=== PATIENT | male | born 1960 | race Caucasian/White ===

== ENCOUNTER 2020-04-18 08:00 | Inpatient (IN) | payer BC ==
[2020-04-12 13:33] VITALS: BMI 26.4
--- NOTE | 2020-04-18 07:59 | HP ---
[facility] - Chief Complaint Chief Complaint: right hip pain - Past Medical History Allergies/Adverse Reactions: Allergies Allergy/AdvReac Type Severity Reaction Status Date / Time No Known Allergies Allergy Verified 04/12/20 13:28 - Current Medications Current Medications: Home Medications Medication Instructions Recorded NK [No Known Home Medication] 04/12/20 [facility] Physical Exam - Physical Examination General Appearance: Well Nourished, Well Developed, Alert & Oriented x3 ENT: Clear Lung: Normal air movement Extremities: Other (right hip- +ttp, decr rom, nvi, xrays show grade 4 hip djd) Neurological: Intact, Alert, Oriented [facility] Impression/Plan - Impression/Plan Impression: right hip djd Operative Procedure: right wendy thr Date to be Performed: 04/18/20
[2020-04-18] MEDS: CELECOXIB 200 MG CAPSULE PO ONE ×2 (09:00→18:29)
[2020-04-18] MEDS ORDERED: MIDAZOLAM HCL 2 MG/2 ML SINGLE DOSE VIAL ONE ×2 (09:27→11:38)
[2020-04-18] MEDS ORDERED: ROPIVACAINE HCL 0.5% 30ML VIAL ONE (09:27)
[2020-04-18] MEDS ORDERED: PROPOFOL 20 ML ONE ×2 (09:45)
[2020-04-18] MEDS ORDERED: BUPIVACAINE HCL/PF 0.5% (5MG/ML) 10 ML VIAL ONE (10:23)
[2020-04-18] MEDS ORDERED: CEFAZOLIN 3 GM in DEXTROSE 5%-WATER - 100 ML IVPB ONE (10:30)
[2020-04-18] MEDS ORDERED: TRANEXAMIC ACID 1000 MG/10 ML VIAL IVPUSH ONE (10:30)
[2020-04-18] MEDS ORDERED: ceFAZolin SODIUM 1 GM VIAL ONE ×3 (10:38→17:42)
[2020-04-18] MEDS ORDERED: VANCOMYCIN 1,000 MG VIAL (RESTRICTED TO ID ONLY) ONE (10:38)
[2020-04-18] MEDS ORDERED: ONDANSETRON 4 MG/2 ML VIAL IVPUSH PRN ×2 (11:10→13:07)
[2020-04-18] MEDS ORDERED: MAGNESIUM HYDROX 2400MG/30ML ORAL SUSPENSION 30 ML CUP PO PRN (11:10)
[2020-04-18] MEDS ORDERED: MAG HYDROX/AL HYDROX/SIMETH 30 ML UNIT-DOSE CUP PO PRN (11:10)
[2020-04-18] MEDS ORDERED: LACTATED RINGERS SOLUTION 1,000 ML IV SCH (11:15)
[2020-04-18] MEDS ORDERED: SODIUM CHLORIDE 0.9% P/F 10 ML VIAL IJ ONE ×2 (11:42→12:15)
[2020-04-18] MEDS ORDERED: TRANEXAMIC ACID 1000 MG/10 ML VIAL ONE (11:42)
[2020-04-18] MEDS ORDERED: VANCOMYCIN 1,000 MG VIAL (RESTRICTED TO ID ONLY) IVPB ONE (12:37)
--- NOTE | 2020-04-18 12:57 | OP ---
Operative Note - Note: Operative Date: 04/18/20 (ashu) Pre-Operative Diagnosis: right hip djd Operation: right wendy thr Post-Operative Diagnosis: Same as Pre-op Surgeon: Jak Santamaria Shadowgraph Scale Operator: Mike Kirby Anesthesia: Spinal, Local Specimens Removed: femoral head Estimated Blood Loss (mls): 100
[2020-04-18] MEDS ORDERED: traMADol HCL 50 MG TABLET PO PRN (13:07)
[2020-04-18] MEDS ORDERED: oxyCODONE HCL 5 MG TABLET PO PRN (13:07)
[2020-04-18] MEDS ORDERED: ACETAMINOPHEN INJECTION 100 ML IVPB ONE (13:15)
[2020-04-18] MEDS: ACETAMINOPHEN 1000 MG/100 ML VIAL (NON FORMULARY) IVPB ONE ×2 (13:18→18:31)
--- NOTE | 2020-04-18 17:17 | SPEC ---
DATE OF OPERATION: 04/18/2020 PREOPERATIVE DIAGNOSIS: Degenerative joint disease right hip. POSTOPERATIVE DIAGNOSIS: Degenerative joint disease right hip. PROCEDURE PERFORMED: Right total hip replacement with robotic-assisted navigation (MAKOplasty). SURGICAL ATTENDING: Jak Santamaria MD. JOURNEYMAN MOLDER: OLTTIE Wu. ANESTHESIA: Regional and spinal. CLOSURE: A Jeremias total hip system with a 56 Trident 2 press-fit acetabulum, a number 7 Accolade 2 press-fit femoral stem, the 36-mm plus 2.5-length ceramic femoral head. Number 1 Vicryl for fascia, 0 and 2-0 subcutaneous, 3-0 V-Loc for skin, 4-0 undyed Vicryl for pin sites. ESTIMATED BLOOD LOSS: Less than 100 mL. COMPLICATIONS: None. CONDITION: To the recovery room in stable condition. DESCRIPTION OF PROCEDURE: The patient was taken to the operating room on April 18, 2020. General and regional anesthesia was administered by the anesthesiologist. IV Kefzol and TXA were administered prophylactically prior to the case. The patient was placed in the lateral decubitus position will all prominences well-padded. The right hip area was prepped and draped in the usual sterile fashion. Using 3 small stab incisions over the iliac crest, 3 threaded pins were drilled in power fashion through the 2 tables of the crest. These pins were fastened and the navigation array for the Satya navigation system. Next, a 12 to 15-cm curved longitudinal incision over the posterolateral aspect of the greater trochanter was incised. Hemostasis was achieved with Bovie cautery. Sharp dissection was carried down to level of the fascia. The fascia was opened the entire length of the incision, spreading the fibers of the gluteus ethan in the direction of origin. A Charnley retractor was placed in this layer. Care was taken not to impale the sciatic nerve. The short external rotators were detached off the insertion of the greater trochanter and peeled off the capsule. A posterior capsulotomy was then performed. A check point was malleted into the greater trochanter and a point on the inferior pole of the patella was obtained as well. These 2 points were used to assess the preoperative offset and limb lengths of the hip. The hip was then dislocated. The femoral neck was then osteotomized down to the appropriate level as directed by the navigation device. Anterior and posterior retractors were placed, exposing the acetabulum. A circumferential labral excision was performed. A check point was malleted into the acetabulum as well. Multiple sites inside the acetabulum and around the rim were utilized to register the acetabulum with the navigation device. An excellent registration of less than 0.5 mm was obtained. The hip was then reamed with the appropriate reamer down to the appropriate depth, with the appropriate orientation and version as assessed on our preoperative plan for this patient. The reamer was removed and the acetabulum was inspected to have good bleeding surfaces throughout. The real acetabular cup was then malleted down into place, with the holes in the appropriate position, until an excellent fixation was obtained. No screws were necessary. The navigation device ensured appropriate orientation and version, with the depth as predetermined. The appropriate liner was then clipped into place. Attention was directed to the femur. The proximal femur was prepared by use a box chisel, a canal finder and serial broaches until the broach achieved excellent rigidity in the proximal femur with the appropriate version being applied. A calcar planer was used to smooth off the calcar flush with the trial components. A trial reduction with the appropriate head was done, and the hip was reduced. The hip was taken through a range of motion from full extension with external rotation to marked flexion, and was stable at 90 degrees of flexion. It was stable to marked abduction and internal rotation, with a positive hang test and negative telescoping. Limb lengths were ascertained visually as well as with the navigation device to be within the targeted range for this patient. The trial component was removed. The real component was then malleted into place. The head was cold welded to the trunnion, and the hip was reduced. Range of motion, stability and limb lengths were as described in the trial component. Then the hip was pulse antibiotic irrigated. Vancomycin powder was placed in the hip joint. The capsule was closed. The fascia was then closed as well using number 1 Vicryl interrupted suture, 0 and 2-0 subcutaneous, and 3-0 V-Loc for the skin. 4-0 undyed Vicryl was used to close the pin sites after the pins were removed. All check points were also removed. Sterile Aquacel dressing was applied. The patient was awakened from anesthesia and transferred into the supine position. Bilateral SCDs and an abduction pillow were placed. X-rays revealed excellent position of the components. The patient was transferred to the recovery room in stable condition, with no complications. Estimated blood loss was less than 100 mL. Dominic [id number]
[2020-04-18] MEDS ORDERED: DEXTROSE 5%-WATER 100 ML IVPB ONE (17:42)
[2020-04-18] MEDS: oxyCODONE HCL 5 MG TABLET PO PRN ×2 (18:16→21:29)
[2020-04-18] MEDS: CEFAZOLIN 3 GM in DEXTROSE 5%-WATER 100 ML IVPB SCH (18:23)
[2020-04-18] MEDS: LACTATED RINGERS SOLUTION 1,000 ML IV SCH (18:30)
[2020-04-18] MEDS: ACETAMINOPHEN 325 MG TABLET (FP) PO SCH (21:28)
[2020-04-18] MEDS: oxyCODONE HCL 10 MG SUSTAINED ACTING TABLET PO SCH (21:28)
[2020-04-18] MEDS: SENNOSIDES/DOCUSATE COMBO (SENNA PLUS) TABLET (UD) PO SCH (21:29)
[2020-04-19] MEDS: oxyCODONE HCL 5 MG TABLET PO PRN ×4 (00:25→19:42)
[2020-04-19] MEDS ORDERED: ceFAZolin SODIUM 1 GM VIAL ONE (03:13)
[2020-04-19] MEDS ORDERED: DEXTROSE 5%-WATER 100 ML IVPB ONE (03:13)
[2020-04-19] MEDS: ACETAMINOPHEN 325 MG TABLET (FP) PO SCH ×4 (03:17→21:35)
[2020-04-19] MEDS: CEFAZOLIN 3 GM in DEXTROSE 5%-WATER 100 ML IVPB SCH (03:18)
[2020-04-19 08:03] LABS: HEMATOCRIT 37.3 % (35.4-49); HEMOGLOBIN 12.4 GM/dl (11.7-16.9); MCH 29.2 pg (25.7-33.7); MCHC 33.1 g/dl (32.0-35.9); MEAN CELL VOLUME 88.2 fl (80-96); MEAN PLT VOLUME 8.6 fl (7.5-11.1); PLATELET COUNT 230 K/MM3 (134-434); RBC 4.24 M/mm3 (4.00-5.60); WHITE BLOOD COUNT 10.1 K/mm3 (4.0-10.8)
[2020-04-19] MEDS: ASPIRIN 325 MG TABLET PO SCH (08:39)
[2020-04-19] MEDS: MULTIVITAMINS (DAILY MVI) TABLET (FP) PO SCH (09:14)
[2020-04-19] MEDS: PANTOPRAZOLE 40 MG TABLET PO SCH (09:14)
[2020-04-19] MEDS: SENNOSIDES/DOCUSATE COMBO (SENNA PLUS) TABLET (UD) PO SCH ×2 (09:15→21:34)
[2020-04-19] MEDS: oxyCODONE HCL 10 MG SUSTAINED ACTING TABLET PO SCH ×2 (09:15→21:34)
--- NOTE | 2020-04-19 09:51 | PN ---
Progress Note (short form) - Note Progress Note: Ortho Pt seen and examined s/p right wendy thr pod #1 Selected Entries 04/19/20 06:00 Temperature 99.0 F Pulse Rate 89 Respiratory 18 Rate Blood Pressure 135/87 Laboratory Tests 04/19/20 07:14 WBC 10.1 Hgb 12.4 Hct 37.3 Plt Count 230 dressing c/d/i, calf soft, nt nvi a/p PT hip precautions dvt ppx pain control d/c home tomorrow
--- NOTE | 2020-04-19 12:19 | PN ---
Progress Note (short form) - Note Progress Note: 60M POD1 s/p R THR under spinal anesthetic with peripheral nerve blocks Pt states pain is well controlled and reports no anesthetic complications. AVSS. Continue current regimen.
[2020-04-19] MEDS: LACTATED RINGERS SOLUTION 1,000 ML IV SCH (14:42)
[2020-04-20] MEDS: oxyCODONE HCL 5 MG TABLET PO PRN ×2 (00:46→06:10)
[2020-04-20] MEDS: ACETAMINOPHEN 325 MG TABLET (FP) PO SCH ×2 (02:38→09:45)
[2020-04-20 06:33] VITALS: BP 121/79; PULSE 82; TEMP 98.9
[2020-04-20 08:07] LABS: HEMATOCRIT 35.7 % (35.4-49); HEMOGLOBIN 11.9 GM/dl (11.7-16.9); MCH 29.5 pg (25.7-33.7); MCHC 33.4 g/dl (32.0-35.9); MEAN CELL VOLUME 88.5 fl (80-96); MEAN PLT VOLUME 8.6 fl (7.5-11.1); PLATELET COUNT 200 K/MM3 (134-434); RBC 4.03 M/mm3 (4.00-5.60); RDW 11.7 % (11.9-15.9); WHITE BLOOD COUNT 11.1 K/mm3 (4.0-10.8)
--- NOTE | 2020-04-20 08:08 | PN ---
Progress Note (short form) - Note Progress Note: Ortho Pt seen and examined s/p right wendy thr pod #2 Selected Entries 04/20/20 06:32 Temperature 98.9 F Pulse Rate 82 Respiratory 18 Rate Blood Pressure 121/79 Laboratory Tests 04/20/20 07:15 WBC Pending Hgb Pending Hct Pending Plt Count Pending dressing c/d/i, calf soft, n nvi a/p PT hip precautions dvt ppx pain control d/c home today f/u in 1 week
--- NOTE | 2020-04-20 08:09 | DS ---
Physical Examination Vital Signs: Vital Signs Temperature 98.9 F 04/20/20 06:32 Pulse Rate 82 04/20/20 06:32 Respiratory Rate 18 04/20/20 06:32 Blood Pressure 121/79 04/20/20 06:32 O2 Sat by Pulse Oximetry (%) 92 L 04/20/20 06:32 Discharge Summary Problems reviewed: Yes Reason For Visit: OSTEOARTHRITIS Procedures: Principal: right thr Hospital Course: admitted for elective right wendy thr, post-op per protocol, stable for d/c Condition: Good - Instructions Diet, Activity, Other Instructions: Post-op Instructions-Total Hip Replacement Call the office for a follow-up appointment in 1 week - [phone] Aspirin 325mg daily for 6 weeks. Pain medication was sent into your pharmacy. Apply Graduated Compression Stockings (TEDs) to both lower extremities- remove daily for hygiene ONLY Apply Sequential Compression Device (SCDs) to both Lower extremities remove for PT and hygiene ONLY Apply cold packs to affected area for 15 minutes every 2 hours. Physical Therapist will come to your home for the first 5 days. You will be set up with outpatient PT at your first post-operative visit. Patient may ambulate as tolerated-encourage self care (at least every 2-3 hours while awake) with walker or cane Maintain Aquacel (waterproof) dressing to operative wound (will be removed by surgeon at first office visit) Shower with Aquacel dressing in place-if Aquacel integrity compromised, remove and apply dry sterile dressing and notify Orthopedist. DO NOT SHOWER unless Orthopedists approves without Aquacel dressing CONTACT THE OFFICE FOR ANY CHANGE IN YOUR CONDITION (for example-fever greater than 102 degrees, excessive bleeding from operative site, purulent drainage, severe swelling or pain) GO TO THE EMERGENCY ROOM IF THERE IS A MED [facility] EMERGENCY Hip Precautions: * Keep a rolled towel under affected heel while in bed or chair (to keep knee in extension) * Dependent upon approach: * Posterior - do not cross legs; do not sit on low chairs or toilets. * If you have any questions, please do not hesitate to call the office - [phone]. Referrals: Jak Santamaria MD [Staff Physician] - Disposition: VNS/HOME HEALTH CARE - Home Medications Comprehensive Discharge Medication List: Ambulatory Orders Aspirin [ASA -] 325 mg PO DAILY@0800 tablet 04/18/20 Oxycodone HCl/Acetaminophen [Percocet 5-325 mg Tablet] 1 - 2 tab PO Q6H #30 tab MDD 6 04/18/20
[2020-04-20] MEDS: MULTIVITAMINS (DAILY MVI) TABLET (FP) PO SCH (09:44)
[2020-04-20] MEDS: PANTOPRAZOLE 40 MG TABLET PO SCH (09:44)
[2020-04-20] MEDS: ASPIRIN 325 MG TABLET PO SCH (09:44)
[2020-04-20] MEDS: oxyCODONE HCL 10 MG SUSTAINED ACTING TABLET PO SCH (09:44)
[2020-04-20] MEDS: SENNOSIDES/DOCUSATE COMBO (SENNA PLUS) TABLET (UD) PO SCH (09:46)
--- NOTE | 2020-04-24 17:28 | PATH ---
Surgical Pathology Report Patient Name: LARISA TORRE Med. Rec. #: [id number] /Age/Gender: 1960 (Age: 60) / M Account: [id number] Location: REPLACED BY [facility] Taken: 04/18/2020 Received: 04/18/2020 Reported: 04/24/2020 Physicians: Jak Santamaria M.D. Specimen(s) Received RIGHT FEMORAL HEAD Clinical History Osteoarthritis right hip Final Diagnosis FEMORAL HEAD, RIGHT, TOTAL HIP REPLACEMENT: DEGENERATIVE JOINT DISEASE. Electronically Signed Josette Cox M.D. Gross Description Received in formalin, labeled "right femoral head," is a 5.0 x 5.0 x 4.5 cm. femoral head with a 1.2 cm in length portion of femoral neck attached. The margin of resection is smooth. No areas of eburnation are identified. The articular surface is colindres-yellow and focally granular. The underlying trabecular bone is yellow and hard. A digital media representative section is submitted in one cassette, following decalcification. 04/20/2020 [facility]04/20/2020
== END 2020-04-20 12:30 | disposition home health service (06) | DRG 470 ==
LOC: MERGE 08:00 → FM/S 08:04
PROVIDERS: ADMIT Orthopaedic Surgery; ATTEND Orthopaedic Surgery
PROC: 8E0W0CZ Robotic Assisted Procedure of Trunk Region, Open Approach (ICD-10-PCS; 2020-04-18)
PROC: 0SR90JZ Replacement of Right Hip Joint with Synthetic Substitute, Open Approach (ICD-10-PCS; principal; 2020-04-18 11:39)
DX: M16.11 Unilateral primary osteoarthritis, right hip (principal)
CPT/HCPCS: 36415; 73502-TC-RT-FY; 85027; 88305-TC; 88311-TC; 94760; 97116-GP; 97162-GP; J0131